=== PATIENT | female | born 1975 | race Two or more races ===

== ENCOUNTER 2020-01-30 17:12 | Emergency (ER) | payer BC ==
[~2020-01-30] VITALS: Ht 170.2 cm; Wt 61.0 kg
[2020-01-30 17:41] VITALS: BP 134/94
== END 2020-01-30 18:29 | disposition home or self-care (01) ==
LOC: ER 17:13
DX: B34.9 Viral infection, unspecified (principal); Z20.828 Contact with and (suspected) exposure to other viral communicable diseases
CPT/HCPCS: 36415; 99282